=== PATIENT | male | born 1980 | race Caucasian/White ===

== ENCOUNTER 2019-01-12 01:28 | Emergency (ER) | payer BC, SELFPAY ==
[2019-01-12 01:52] LABS: #Eosinphils 0.3 thou/uL (0.0-0.7); #Lymphocytes 2.4 thou/uL (1.20-3.40); #Monocytes 0.5 thou/uL (0.11-0.59); #Neutrophils 5.8 thou/uL (1.40-6.50); %Basophils 0.4 % (0.0-1.0); %Lymphocytes 26.6 % (21.0-51.0); %Monocytes 5.3 % (0.0-10.0); %Neutrophils 64.6 % (42.0-75.0); Hemoglobin 13.9 g/dL (14.0-18.0); Mean Corpuscular HGB CONC 34.8 g/dL (32.0-36.0); Mean Corpuscular Hemoglobin 31.3 pg (27.0-31.0); Platelet Count 296 thou/uL (130-400); RBC Distribution Width 11.6 % (11.5-14.5); Red Blood Cell (RBC) Count 4.43 mill/uL (4.70-6.10); White Blood Cell (WBC) Count 8.9 thou/uL (4.8-10.8)
[2019-01-12] MEDS ORDERED: Aspirin Chewable 81 MG TAB ONE (02:14)
[2019-01-12 02:16] LABS: ALT (SGPT) 33 U/L (8-55); AST (SGOT) 24 U/L (5-34); Albumin 4.2 g/dL (3.5-5.0); Alkaline Phosphatase 79 U/L (40-150); Anion Gap 15 mmol/L (10-20); BUN (Urea Nitrogen) 14 mg/dL (8.9-20.6); Bilirubin, Total 0.2 mg/dL (0.2-1.2); Calc. Creatinine Clearance 0 mL/min (70-130); Calcium 9.3 mg/dL (7.8-10.44); Carbon Dioxide 21 mmol/L (22-29); Chloride 106 mmol/L (98-107); Estimated GFR-MDRD 75; Globulin 2.8 g/dL (2.4-3.5); Glucose 115 mg/dL (70-105); Potassium 3.7 mmol/L (3.5-5.1); Sodium 138 mmol/L (136-145)
[2019-01-12] MEDS ORDERED: Lidocaine Viscous Sol 2% 15 ml UD Cup ONE (02:25)
[2019-01-12] MEDS ORDERED: Mag-Al 1200 mg/1200 mg/30 ML UDCUP ONE (02:25)
--- NOTE | 2019-01-12 07:52 | RAD ---
EXAM: Single view of the chest HISTORY: Dizziness while driving COMPARISON: 10/23/2015 FINDINGS: Single view of the chest shows a normal sized cardiomediastinal silhouette. There is no tyra dence of consolidation, mass, or pleural effusion. The bones are unremarkable. IMPRESSION: No evidence of acute cardiopulmonary disease
== END 2019-01-12 03:17 | disposition home or self-care (01) ==
LOC: ERS 01:28
DX: R07.2 Precordial pain (principal)
CPT/HCPCS: 71045; 80053; 83690; 84484; 85025; 93005; 94760

== ENCOUNTER 2021-11-21 10:51 | Emergency (ER) | payer OTHER ==
[2021-11-21] MEDS ORDERED: Lidocaine 1% w/Epinephrine 1:100K 20 ML VIAL ONE (12:02)
[2021-11-21] MEDS ORDERED: Bacitracin 1 PK ONE (13:19)
[2021-11-21] MEDS ORDERED: Boostrix 0.5 ML (Tdap) VIAL ONE (13:19)
== END 2021-11-21 13:39 | disposition home or self-care (01) ==
LOC: ERS 10:51
DX: S51.812A Laceration without foreign body of left forearm, initial encounter (principal); W45.8XXA Other foreign body or object entering through skin, initial encounter
CPT/HCPCS: 12002; 90471; 90715

== ENCOUNTER 2021-12-04 12:54 | Emergency (ER) | payer OTHER | END 2021-12-04 13:34 | disposition home or self-care (01) | LOC: ERS 12:54 | DX: S51.812D Laceration without foreign body of left forearm, subsequent encounter (principal); X58.XXXD Exposure to other specified factors, subsequent encounter | CPT/HCPCS: 99281 ==